=== PATIENT | male | born 1985 | race Two or more races ===

== ENCOUNTER 2023-03-31 07:34 | Emergency (ER) | payer MEDICAID, OTHER ==
[~2023-03-31] VITALS: Ht 160 cm; Wt 60.2 kg
[2023-03-31 07:52] VITALS: BP 146/97
[2023-03-31] MEDS ORDERED: METH-1182 PO (08:52)
[2023-03-31] MEDS ORDERED: IBUP-1456 PO (08:52)
== END 2023-03-31 09:01 | disposition home or self-care (01) ==
LOC: ER 07:34
DX: R51.9 Headache, unspecified (principal); M54.2 Cervicalgia; W18.39XA Other fall on same level, initial encounter; Y93.89 Activity, other specified; Y92.89 Other specified places as the place of occurrence of the external cause; Y99.8 Other external cause status
CPT/HCPCS: 70450